=== PATIENT | female | born 1960 | race Caucasian/White ===

== ENCOUNTER 2025-04-08 09:58 | Emergency (ER) | payer MEDICAID ==
[~2025-04-08] VITALS: Ht 153 cm; Wt 63.6 kg
[2025-04-08 13:33] VITALS: BP 124/72; PULSE 88; RESP 16; O2SAT 97
[2025-04-08] MEDS ORDERED: SULF-261 PO (13:34)
[2025-04-08] MEDS ORDERED: CEPH-558 PO (13:35)
[2025-04-08] MEDS: CEPHALEXIN MONOHYDRATE 500 MG CAPSULE PO ONE (13:44)
[2025-04-08] MEDS: SULFAMETHOX/TRIMETH DS 800-160 MG/TABLET PO ONE (13:44)
== END 2025-04-08 13:45 | disposition home or self-care (01) ==
LOC: EMS 12:25
DX: L02.611 Cutaneous abscess of right foot (principal); Z90.89 Acquired absence of other organs; Z79.899 Other long term (current) drug therapy
CPT/HCPCS: 10060; 99283